=== PATIENT | male | born 1980 | race Caucasian/White ===

== ENCOUNTER → 2018-03-17 | Outpatient (CLI) | payer BC ==
--- NOTE | 2018-03-17 11:24 | DIAGNOSTIC IMAGING REPORT ---
L KNEE 1 OR 2 VIEWS ROUTINE CLINICAL HISTORY: Strain of left knee. COMPARISON: Knee radiographs November 16, 2007. FINDINGS: Alignment of the left knee is anatomic. No acute fracture is identified. A small to moderate left knee joint effusion is suspected. No acute fracture is identified. Joint spaces are preserved. There is mild osteophytosis of the left knee. IMPRESSION: 1. No acute fracture. 2. Suspected small to moderate left knee joint effusion. 3. Mild left knee tricompartment osteophytosis. Electronically signed by: Ayan London M.D. 03/17/2018 11:22 AM Dictated Date/Time: 03/17/2018 11:21 AM
== END | disposition home or self-care (01) ==
LOC: C.RADPV 11:08
PROVIDERS: ATTEND Family Medicine
DX: S86.912A Strain of unspecified muscle(s) and tendon(s) at lower leg level, left leg, initial encounter (principal); X58.XXXA Exposure to other specified factors, initial encounter; M25.762 Osteophyte, left knee